=== PATIENT | female | born 1975 | race African-American/Black ===

== ENCOUNTER 2023-08-18 23:20 | Emergency (ER) | payer OTHER ==
[~2023-08-18] VITALS: Ht 172.7 cm; Wt 98.5 kg
[2023-08-18 23:26] VITALS: BP 0/0; PULSE 0; RESP 0; O2SAT 0
[2023-08-18] MEDS ORDERED: TENECTEPLASE 50MG/VIAL IV NR (23:30)
[2023-08-18] MEDS ORDERED: TENECTEPLASE 50MG/VIAL IV ONE (23:30)
== END 2023-08-18 23:41 ==
LOC: ER 23:20
DX: I46.9 Cardiac arrest, cause unspecified (principal); F19.90 Other psychoactive substance use, unspecified, uncomplicated
CPT/HCPCS: 99285; 92950; 31500; 96374; 82962; J2997